=== PATIENT | male | born 1985 | race Caucasian/White ===

== ENCOUNTER 2018-08-30 15:33 | Emergency (ER) | payer BC ==
[~2018-08-30] VITALS: Ht 182.9 cm; Wt 101.2 kg
[2018-08-30 15:41] VITALS: BP 135/87; Ht 182.9 cm; Wt 101.2 kg
== END 2018-08-30 16:03 | disposition home or self-care (01) ==
LOC: ED 15:33
DX: B34.9 Viral infection, unspecified (principal)